=== PATIENT | female | born 1965 | race Caucasian/White ===

== ENCOUNTER 2016-09-04 14:02 | Emergency (ER) | payer MEDICAID ==
[2016-09-04 14:11] VITALS: BP 108/68
--- NOTE | 2016-09-04 14:31 | XRAY Preliminary Report ---
Exam: XR Finger(s) LT IMPRESSION: Soft tissue swelling. [facility] SITE ID: [id number]
--- NOTE | 2016-09-04 14:34 | XRAY Report ---
EXAM: LEFT THIRD DIGIT RADIOGRAPHY EXAM DATE: 09/04/2016 02:24 PM. CLINICAL HISTORY: Injury middle finger left hand. COMPARISON: None. TECHNIQUE: 3 views. FINDINGS: Bones: No definite acute fracture or other bone lesion. Joints: Tiny ossicle ulnar to the third DIP joint may represent old avulsion. Joint spaces well-prese rved. Soft Tissues: Mild soft tissue swelling. IMPRESSION: Soft tissue swelling. [facility] Referring Provider Line: [phone] SITE ID: [id number]
--- NOTE | 2016-09-04 14:58 | ED Physician Documentation ---
PD HPI UPPER EXT INJURY - Stated complaint Stated Complaint: LEFT FINGER INJ - Chief complaint Chief Complaint: Ext Problem - History obtained from History obtained from: Patient - History of Present Illness Location: Left, Finger (middle) Type of injury: Crush Where injury occurred: Other ([place]) Timing - onset: How many hours ago (2) Worsened by: Moving, Palpating Associated symptoms: Swelling. No: Weakness, Numbness Similar symptoms before: Has not had sx before - Additonal information Additional information: The patient is a 50-year-old female who [place] left [place] when the wind caught her door while she opened it. She is left-hand dominant. She denies any other injuries. Tetanus status is up-to-date. Review of Systems Respiratory: denies: Dyspnea GI: denies: Nausea, Vomiting Skin: denies: Rash, Laceration (s) Musculoskeletal: reports: Extremity pain (Left middle finger.) Neurologic: denies: Focal weakness, Numbness PD PAST MEDICAL HISTORY - Past Medical History Cardiovascular: None Respiratory: None Neuro: None Endocrine/Autoimmune: None Psych: Depression, Anxiety, ADD/ADHD - Past Surgical History Past Surgical History: Yes Ortho: Rotator cuff repair - Present Medications Home Medications: Ambulatory Orders Medication Instructions Recorded Confirmed FLUoxetine [PROzac] 20 mg ORAL DAILY 05/11/15 12/25/15 Dextroamphetamine/Amphetamine 20 mg ORAL BID 12/25/15 12/25/15 [Adderall 20 mg Tablet] Famotidine [Pepcid] 20 mg PO BID #60 tablet 12/25/15 HYDROcod/ACETAM 5/325 [Vicodin 1 - 2 ea PO Q6H PRN #20 tablet 09/04/16 5/325] - Allergies Allergies/Adverse Reactions: Allergies Allergy/AdvReac Type Severity Reaction Status Date / Time clindamycin Allergy Unknown Verified 05/11/15 14:33 - Social History Does the pt smoke?: Yes Smoking Status: Current some day smoker Does the pt drink ETOH?: Yes Does the pt have substance abuse?: No - Immunizations Immunizations are current?: Yes PD ED PE NORMAL - Vitals Vital signs reviewed: Yes (normal) - General General: Alert and oriented X 3, Well developed/nourished - HEENT HEENT: Atraumatic - Respiratory Respiratory: No respiratory distress - Derm Derm: No rash - Extremities Extremities: Other (There is slight swelling and ecchymosis of the left middle finger at the level of the middle and distal phalanges. She has diminished range of motion of the DIP joint secondary to pain. She is able to flex and extend at the PIP and MCP joints. Distal neurovascular is intact.) - Neuro Neuro: Alert and oriented X 3, No motor deficit, No sensory deficit, Normal speech Results - Vitals Vitals: Oxygen O2 Source Room air - Rads (name of study) Left middle finger Radiology: Prelim report reviewed, EMP read contemporaneously, See rad report ( Soft tissue swelling.) PD MEDICAL DECISION MAKING - ED course Complexity details: reviewed results, considered differential, d/w patient, d/w family ED course: The patient's presentation is significant for crush injury to her left middle finger. X-ray reveals soft tissue swelling, without bony abnormality detected. Treatment in the emergency department included administration of Vicodin one tablet orally. She is being discharged prescription for Vicodin, 20 tablets. She has her own finger splint which she will use for protection. 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 Departure - Departure Disposition: 01 Home, Self Care Clinical Impression: Crush injury to finger Qualifiers: Encounter type: initial encounter Qualified Code(s): S67.10XA - Crushing injury of unspecified finger(s), initial encounter Condition: Stable Instructions: ED Crush Injury Finger No Fx Follow-Up: Benedict Tse MD [Primary Care Provider] - Prescriptions: HYDROcod/ACETAM 5/325 [Vicodin 5/325] 1 - 2 ea PO Q6H PRN #20 tablet PRN Reason: Pain Comments: Keep your left hand elevated as much the time as possible. Apply icepack to the crushed finger intermittently for the next 2 days. Use Vicodin as prescribed if needed for pain. You can also use ibuprofen, up to 800 mg 3 times daily, for its anti- inflammatory effect. Follow up with your primary physician, or return to the emergency department, if you develop increasing pain despite the pain medication, any sign of infection, or otherwise worsening symptoms. Discharge Date/Time: 09/04/16 15:20
[2016-09-04] MEDS ORDERED: HYDROcod/ACETAM 5/325 MG TABLET PO STA (15:04)
[2016-09-04] MEDS ORDERED: HYDROcod/ACETAM 5/325 MG TABLET ONE (15:08)
== END 2016-09-04 15:20 | disposition home or self-care (01) ==
LOC: ED 14:02
DX: S67.193A Crushing injury of left middle finger, initial encounter (principal); V93 Other injury due to accident on board watercraft, without accident to watercraft; W23.0XXA Caught, crushed, jammed, or pinched between moving objects, initial encounter; Y93.89 Activity, other specified; Y92.814 Boat as the place of occurrence of the external cause; F17.200 Nicotine dependence, unspecified, uncomplicated
CPT/HCPCS: 73140; 99283; A9270

== ENCOUNTER 2016-12-29 12:09 | Emergency (ER) | payer MEDICAID ==
[2016-12-29 12:32] VITALS: BP 144/98
--- NOTE | 2016-12-29 13:07 | ED Physician Documentation ---
PD HPI URI - Stated complaint Stated Complaint: L RIB PX-FALL, COUGH SORE THROAT,EAR PX - Chief complaint Chief Complaint: Resp - History obtained from History obtained from: Patient - History of Present Illness Timing - onset: Other (Sick for about 4 days with right ear pain, congestion, aches and chills but no measured fevers. She was eating well for the first few days, is doing better today, but because of that she felt dizzy last night and fell without syncope hitting her left chest wall on the stairs at home. No other injuries. She is not short of breath per se but it hurts to take a deep breath.) Review of Systems Constitutional: reports: Chills, Fatigue. denies: Fever Ears: reports: Ear pain Nose: reports: Rhinorrhea / runny nose, Congestion Throat: denies: Sore throat Respiratory: reports: Cough. denies: Dyspnea PD PAST MEDICAL HISTORY - Past Medical History Cardiovascular: None Respiratory: None Neuro: None Endocrine/Autoimmune: None Psych: Depression, Anxiety, ADD/ADHD - Past Surgical History Past Surgical History: Yes Ortho: Rotator cuff repair - Present Medications Home Medications: Ambulatory Orders Medication Instructions Recorded Confirmed FLUoxetine [PROzac] 20 mg ORAL DAILY 05/11/15 12/29/16 Famotidine [Pepcid] 20 mg PO BID #60 tablet 12/25/15 12/29/16 Azithromycin [Zithromax] 250 mg PO DAILY #6 tablet 12/29/16 HYDROcod/ACETAM 5/325 [[place] 5/325] 1 - 2 ea PO Q6H PRN #15 tablet 12/29/16 - Allergies Allergies/Adverse Reactions: Allergies Allergy/AdvReac Type Severity Reaction Status Date / Time clindamycin Allergy Unknown Verified 12/29/16 12:31 - Social History Does the pt smoke?: Yes Smoking Status: Current some day smoker Does the pt drink ETOH?: Yes Does the pt have substance abuse?: No - Immunizations Immunizations are current?: Yes PD ED PE NORMAL - Vitals Vital signs reviewed: Yes - General General: Alert and oriented X 3, No acute distress - HEENT HEENT: Other (Right otitis media, left TM normal, oropharynx normal.) - Cardiac Cardiac: RRR, No murmur - Respiratory Respiratory: No respiratory distress, Clear bilaterally, Other (She points to the anterior axillary line on the left, low ribs as the site of the pain but she does not have any tenderness. No ecchymosis or visible injury, no abdominal tenderness.) - Abdomen Abdomen: Non tender - Derm Derm: Normal color, Warm and dry - Extremities Extremities: No edema, No calf tenderness / cord - Neuro Neuro: Alert and oriented X 3, Normal speech - Psych Psych: Normal mood, Normal affect Results - Vitals Vitals: Vital Signs - 24 hr 12/29/16 12:24 Temperature 36.7 C Heart Rate 81 Respiratory 14 Rate Blood Pressure 144/98 H O2 Saturation 99 Oxygen O2 Source Room air PD MEDICAL DECISION MAKING - ED course ED course: She has a viral URI with Right otitis media and a chest wall contusion, we discussed potentially an x-ray of the chest but she declined, do not think it is broken and there is no evidence of pneumothorax. Departure - Departure Disposition: 01 Home, Self Care Clinical Impression: Chest wall contusion Qualifiers: Encounter type: initial encounter Laterality: left Qualified Code(s): S20.212A - Contusion of left front wall of thorax, initial encounter ROM (right otitis media) Qualifiers: Otitis media type: suppurative Chronicity: acute Recurrence: recurrent Spontaneous tympanic membrane rupture: without spontaneous rupture Qualified Code(s): H66.004 - Acute suppurative otitis media without spontaneous rupture of ear drum, recurrent, right ear Condition: Good Record reviewed to determine appropriate education?: Yes Instructions: ED Contusion Chest Wall, ED Otitis Media Acute Adult Prescriptions: Azithromycin [Zithromax] 250 mg PO DAILY #6 tablet HYDROcod/ACETAM 5/325 [[place] 5/325] 1 - 2 ea PO Q6H PRN #15 tablet PRN Reason: Pain Comments: Call your doctor to arrange a follow-up appointment, make the next available appointment. In the interim, return anytime if worse or if new symptoms develop. Your blood pressure was elevated today on check into the emergency department. This does not mean that you have hypertension, it is a common phenomenon to come to the emergency department and have elevated blood pressure. I recommend that she see your primary care physician within the week to have it rechecked when you are feeling better. Do not drink or drive while taking narcotic pain medication. Note that many narcotic pain relievers also contain Tylenol/acetaminophen. Please ensure that your total dose of acetaminophen from all sources does not exceed 3 g (3000 mg) per day. You may get constipated while on this medication. Take a stool softener such as Colace twice a day while you are on it. Also add an [id number] laxative such as senna or MiraLAX on any day that you do not have a bowel movement. If you received a narcotic pain medication or sedative while in the emergency department, do not drive for the next 24 hours.
== END 2016-12-29 13:19 | disposition home or self-care (01) ==
LOC: ED 12:09
DX: S20.212A Contusion of left front wall of thorax, initial encounter (principal); W18.30XA Fall on same level, unspecified, initial encounter; W22.09XA Striking against other stationary object, initial encounter; Y92.009 Unspecified place in unspecified non-institutional (private) residence as the place of occurrence of the external cause; H66.004 Acute suppurative otitis media without spontaneous rupture of ear drum, recurrent, right ear; J06.9 Acute upper respiratory infection, unspecified; R03.0 Elevated blood-pressure reading, without diagnosis of hypertension; F17.200 Nicotine dependence, unspecified, uncomplicated
CPT/HCPCS: 99283; 99284

== ENCOUNTER 2017-01-20 14:53 | Emergency (ER) | payer MEDICAID ==
--- NOTE | 2017-01-20 15:00 | ED Physician Documentation ---
PD HPI LOWER EXT INJURY - Stated complaint Stated Complaint: TOE INJURY - History obtained from History obtained from: Patient - History of Present Illness PD HPI LOW EXT INJURY LOCATION: Right, Toe (little and fourth toe) Type of injury: Blunt / blow Where injury occurred: Home Timing - onset: Last night (she was upset on phonecall and kicked bed frame, with injury to 4th and 5th toes on right foot. Bruising and swelling of the bases of those toes. Pain with movement.) Timing - details: Abrupt onset, Still present Worsened by: Moving, Palpating Associated symptoms: Swelling, Discolored (bruised). No: Weakness, Numbness Similar symptoms before: Has not had sx before Recently seen: Not recently seen Review of Systems Skin: denies: Abrasion (s), Laceration (s) Musculoskeletal: reports: Extremity pain, Joint pain Neurologic: denies: Focal weakness, Numbness PD PAST MEDICAL HISTORY - Past Medical History Cardiovascular: None Respiratory: None Neuro: None Endocrine/Autoimmune: None Psych: Depression, Anxiety, ADD/ADHD - Past Surgical History Past Surgical History: Yes Ortho: Rotator cuff repair - Present Medications Home Medications: Ambulatory Orders Medication Instructions Recorded Confirmed FLUoxetine [PROzac] 60 mg ORAL DAILY 05/11/15 01/20/17 HYDROcod/ACETAM 5/325 [[place] 5/325] 1 tab PO Q6H PRN #15 tablet 01/20/17 Omeprazole [PriLOSEC] 20 mg PO DAILY 01/20/17 01/20/17 - Allergies Allergies/Adverse Reactions: Allergies Allergy/AdvReac Type Severity Reaction Status Date / Time clindamycin Allergy Unknown Verified 12/29/16 12:31 - Social History Does the pt smoke?: Yes Smoking Status: Current every day smoker Does the pt drink ETOH?: Yes Does the pt have substance abuse?: No - Immunizations Immunizations are current?: Yes PD ED PE NORMAL - Vitals Vital signs reviewed: Yes - General General: Alert and oriented X 3, Well developed/nourished - Derm Derm: Normal color, Warm and dry - Extremities Extremities: Other (right little toe and 4th toes with bruising and swelling without deformity. Little toe particularly tender to light palpation. Normal color and cap refill, with sensation at tip. She does not move it due to pain. ) - Neuro Neuro: No motor deficit, No sensory deficit Results - Vitals Vitals: Vital Signs - 24 hr 01/20/17 14:58 Temperature 36.6 C Heart Rate 100 Respiratory 18 Rate Blood Pressure 122/81 H O2 Saturation 98 Oxygen O2 Source Room air - Rads (name of study) toes right Radiology: Prelim report reviewed, EMP read contemporaneously (proximal phalanx nondisplaced shaft fracture. ) PD MEDICAL DECISION MAKING - ED course Complexity details: reviewed results, re-evaluated patient (demonstrated various taping ideas for the toe. ), considered differential, d/w patient Departure - Departure Disposition: 01 Home, Self Care Clinical Impression: Toe fracture, right Qualifiers: Encounter type: initial encounter Toe: lesser toe Fracture type: closed Phalanx : proximal Fracture alignment: nondisplaced Qualified Code(s): S92.514A - Nondisplaced fracture of proximal phalanx of right lesser toe(s), initial encounter for closed fracture Condition: Stable Record reviewed to determine appropriate education?: Yes Instructions: ED Fx Toe Closed Follow-Up: Benedict Tse MD [Primary Care Provider] - Prescriptions: HYDROcod/ACETAM 5/325 [[place] 5/325] 1 tab PO Q6H PRN #15 tablet PRN Reason: Pain Comments: Panfilo tape or anchor tape and firm soled shoe to reduce motion of the toe. Ice it frequently tonight and tomorrow. Anti-inflammatory such as ibuprofen or naproxen twice daily. Add Tylenol or hydrocodone as needed for pain. Progress activity as able with the toe and foot. It should decrease in pain after a few days with the swelling going down and then at about a week and a half when the early callus formation occurs. It will take about 4-5 weeks to fully heal up. Discharge Date/Time: 01/20/17 16:34
[2017-01-20 15:03] VITALS: BP 122/81
[2017-01-20] MEDS ORDERED: ACETAMINOPHEN 325 MG TABLET PO STA (15:15)
[2017-01-20] MEDS ORDERED: IBUPROFEN 400 MG TABLET PO STA (15:15)
--- NOTE | 2017-01-20 16:16 | XRAY Preliminary Report ---
Exam: XR TOE(S) RT IMPRESSION: There is obliquely oriented fracture through the fifth proximal phalanx. No evidence of d islocation. [facility] SITE ID: [id number]
--- NOTE | 2017-01-20 16:19 | XRAY Report ---
EXAM: RIGHT TOE RADIOGRAPHY EXAM DATE: 01/20/2017 04:08 PM. CLINICAL HISTORY: Little toe injury last night, struck object. COMPARISON: None. TECHNIQUE: 3 views. FINDINGS: Bones: There is obliquely oriented fracture through the fifth proximal phalanx. Joints: No evidence of dislocation. Soft Tissues: Mild lateral foot soft tissue swelling. IMPRESSION: There is obliquely oriented fracture through the fifth proximal phalanx. No evidence of d islocation. [facility] Referring Provider Line: [phone] SITE ID: [id number]
== END 2017-01-20 16:34 | disposition home or self-care (01) ==
LOC: ED 14:53
DX: S92.514A Nondisplaced fracture of proximal phalanx of right lesser toe(s), initial encounter for closed fracture (principal); W22.8XXA Striking against or struck by other objects, initial encounter; Y93.89 Activity, other specified; Y92.009 Unspecified place in unspecified non-institutional (private) residence as the place of occurrence of the external cause
CPT/HCPCS: 73660; 99283

== ENCOUNTER 2017-10-02 14:49 | Emergency (ER) | payer MEDICAID ==
[2017-10-02 15:06] VITALS: BP 141/91
== END 2017-10-02 16:01 | disposition left against medical advice (07) ==
LOC: ED 14:49
DX: Z53.21 Procedure and treatment not carried out due to patient leaving prior to being seen by health care provider (principal)

== ENCOUNTER 2018-06-21 13:01 | Emergency (ER) | payer MEDICAID ==
[2018-06-21 13:16] VITALS: BP 128/93
--- NOTE | 2018-06-21 13:29 | ED Physician Documentation ---
History of Present Illness - Stated complaint Stated Complaint: SHOULDER PX - Chief complaint Chief Complaint: Ext Problem - History obtained from History obtained from: Patient - Additonal information Additional information: Patient is a previously healthy, left-handed 52-year-old female presenting with request for MRI of left shoulder. Patient does report history of left shoulder issues that have required surgical correction, although no hardware in place. Approximately 2 months ago, patient was walking through the [employer] [employer] airport and pulling her luggage through the snow with her left arm and tweaked her shoulder. Patient reports that she has had continuing discomfort in the shoulder that radiates towards the top of her arm, as well as limited range of motion and lifting her arm above her head. Patient denies any particular sensation or other strength changes to the left upper extremity. Patient also denies any known swelling, bruising, erythema. Patient has seen her primary care physician several times and has tried [id number]-[id number] medications such as ibuprofen/Tylenol. Patient is currently scheduled for outpatient MRI, but there is some difficulties with her insurance. No other improving or worsening factors noted to her symptoms. Review of Systems Musculoskeletal: reports: Extremity pain Neurologic: denies: Focal weakness, Numbness PD PAST MEDICAL HISTORY - Past Medical History Past Medical History: Yes Cardiovascular: None Respiratory: None Endocrine/Autoimmune: None Psych: Depression, Anxiety, ADD/ADHD - Past Surgical History Past Surgical History: Yes Ortho: Rotator cuff repair, Arthroscopic surgery - Present Medications Home Medications: Ambulatory Orders Medication Instructions Recorded Confirmed FLUoxetine [PROzac] 60 mg ORAL DAILY 05/11/15 01/20/17 HYDROcod/ACETAM 5/325 [[place] 5/325] 1 tab PO Q6H PRN #15 tablet 01/20/17 Omeprazole [PriLOSEC] 20 mg PO DAILY 01/20/17 01/20/17 - Allergies Allergies/Adverse Reactions: Allergies Allergy/AdvReac Type Severity Reaction Status Date / Time clindamycin Allergy Unknown Verified 06/21/18 13:09 - Social History Does the pt smoke?: Yes Smoking Status: Current every day smoker Does the pt drink ETOH?: Yes Does the pt have substance abuse?: No - Immunizations Immunizations are current?: Yes - POLST Patient has POLST: No PD ED PE NORMAL - General General: Alert and oriented X 3, No acute distress, Well developed/nourished - HEENT HEENT: Atraumatic - Cardiac Cardiac: Strong equal pulses (Cap refill brisk) - Respiratory Respiratory: No respiratory distress - Derm Derm: Normal color, Warm and dry, No rash - Extremities Extremities: No deformity, No tenderness to palpate, Normal ROM s pain (Limited range of motion and full extension of above shoulder on left side) - Neuro Neuro: Alert and oriented X 3, No motor deficit, No sensory deficit - Psych Psych: Normal mood, Normal affect Results - Vitals Vitals: Vital Signs - 24 hr 06/21/18 13:09 Temperature 36.6 C Heart Rate 70 Respiratory 14 Rate Blood Pressure 128/93 H O2 Saturation 100 Oxygen O2 Source Room air PD MEDICAL DECISION MAKING - ED course Complexity details: reviewed old records, considered differential, d/w patient, d/w family ED course: Patient presenting with request for left shoulder MRI as she is currently awaiting MRI as an outpatient, but having difficulties with her primary care physician and insurance. Patient reports that she has had previous issues with this shoulder, but does not have shoulder replacement or other hardware in place. Patient reports that about 2 months ago she experienced a slight injury to the shoulder and per her symptoms, I feel most likely she is expressing a rotator cuff injury. Do not have high suspicion today for new fracture, dislocation, joint infection or other complication. Do not find evidence of neurological issues such as nerve entrapment. Offered Toradol in ED, but unable to provide emergent MRI or other interventions at this time. Feel that she needs to continue her outpatient plan and can continue to ask her PCP for additional assistance with other alternatives such as massage, physical therapy, acupuncture. Patient voiced understanding and is comfortable with discharge plan. Departure - Departure Disposition: 01 Home, Self Care Clinical Impression: Pain of upper extremity Qualifiers: Laterality: left Qualified Code(s): M79.602 - Pain in left arm Condition: Good Instructions: ED Torn Rotator Cuff Follow-Up: Viral Curtis MD [Provider Admit Priv/Credential] - Within 3 Days Comments: Recommend continued follow-up with your primary care physician for orthopedic surgery referral, as well as referral for possible physical therapy, massage, acupuncture. You can also call orthopedic surgery as listed on today's forms in the next 2-3 days for follow-up.Recommend continued supportive care such as a protein/Tylenol, stretching, and massage. Return to ED sooner if experience new injury or worsening symptoms.
[2018-06-21] MEDS ORDERED: KETOROLAC 60 MG/2 ML VIAL IM STA (13:44)
== END 2018-06-21 14:25 | disposition home or self-care (01) ==
LOC: ED 13:01
DX: M79.602 Pain in left arm (principal); F17.200 Nicotine dependence, unspecified, uncomplicated
CPT/HCPCS: 96372; 99282; 99283

== ENCOUNTER 2019-03-07 13:46 | Outpatient (CLI) | payer MEDICAID ==
[2019-03-07 19:17] LABS: RHEUMATOID FACTOR NEGATIVE (Negative)
[2019-03-09 14:42] LABS: ANA SCREEN NEGATIVE (NEGATIVE)
== END 2019-03-07 13:47 | disposition home or self-care (01) ==
LOC: LAB.S 13:46
PROVIDERS: ATTEND Physician Assistant Medical
DX: M25.442 Effusion, left hand (principal); M25.441 Effusion, right hand; Z82.61 Family history of arthritis
CPT/HCPCS: 36415; 86038; 86430

== ENCOUNTER 2019-08-31 13:56 | Emergency (ER) | payer MEDICAID ==
[2019-08-31 14:17] LABS: BILIRUBIN,URINE NEGATIVE (NEGATIVE); GLUCOSE, URINE (UA) NEGATIVE (NEGATIVE); KETONES,URINE (UA) NEGATIVE (NEGATIVE); LEUKOCYTE ESTERASE, URINE NEGATIVE (NEGATIVE); NITRITE,URINE NEGATIVE (NEGATIVE); OCCULT BLOOD,URINE NEGATIVE (NEGATIVE); PROTEIN,URINE NEGATIVE (NEGATIVE); UROBILINOGEN,URINE 0.2 (NORMAL) E.U./dL (NORMAL)
[2019-08-31 14:18] LABS: CLARITY,URINE CLEAR (CLEAR)
--- NOTE | 2019-08-31 14:19 | ED Physician Documentation ---
History of Present Illness - Stated complaint Stated Complaint: RT FLANK PX - Chief complaint Chief Complaint: UTI - History obtained from History obtained from: Patient - History of Present Illness Timing: Prior to arrival, How many days ago (3) Pain level max: 8 Pain level now: 4 Radiates to: back - Additonal information Additional information: 53-year-old female presents to the emergency department with chief complaint of right flankm, RLQ and back pain with associated increased urinary urgency and frequency. In point she denies dysuria or hematuria. She reports that she was on a prolonged car trip and sitting for 6 to 8 hours. She is unsure if she was able to void adequately during the length of the car trip. Patient is sexually active with her long-term boyfriend. Reports monogamy. Denies vaginal vaginal discharge, denies dyspareunia.. No history of recurrent urinary tract infection. Patient reports that she had not had a menstrual cycle for nearly a year until a month ago when she began having episodic vaginal spotting. Past medical history most significant for depression anxiety and trigger finger Meds: fluoxetine, gabapentin Review of Systems Constitutional: denies: Fever, Chills Throat: denies: Dental pain / toothache Cardiac: denies: Chest pain / pressure, Palpitations Respiratory: denies: Dyspnea, Cough GI: reports: Abdominal Pain, Nausea. denies: Vomiting, Constipation, Diarrhea : reports: Frequency. denies: Dysuria, Hematuria Skin: denies: Rash, Lesions Musculoskeletal: reports: Back pain Neurologic: denies: Generalized weakness, Syncope, Seizure Psychiatric: reports: Depressed Endocrine: reports: Polyuria. denies: Polydypsia, Weight loss, Weight gain PD PAST MEDICAL HISTORY - Past Medical History Past Medical History: Yes Cardiovascular: None Respiratory: None Endocrine/Autoimmune: None Psych: Depression, Anxiety, ADD/ADHD - Past Surgical History Past Surgical History: Yes Ortho: Rotator cuff repair, Arthroscopic surgery - Present Medications Home Medications: Ambulatory Orders Medication Instructions Recorded Confirmed FLUoxetine [PROzac] 60 mg ORAL DAILY 05/11/15 01/20/17 HYDROcod/ACETAM 5/325 [[place] 5/325] 1 tab PO Q6H PRN #15 tablet 01/20/17 Omeprazole [PriLOSEC] 20 mg PO DAILY 01/20/17 01/20/17 Cephalexin [Keflex] 500 mg PO Q8H #21 capsule 08/31/19 - Allergies Allergies/Adverse Reactions: Allergies Allergy/AdvReac Type Severity Reaction Status Date / Time clindamycin Allergy Unknown Verified 08/31/19 14:08 - Social History Does the pt smoke?: Yes Smoking Status: Current every day smoker Does the pt drink ETOH?: Yes Does the pt have substance abuse?: No - Immunizations Immunizations are current?: Yes - POLST Patient has POLST: No PD ED PE EXPANDED - General General: Alert, No acute distress, Well developed/nourished - Neck Neck: Supple w/out meningeal sx, No tenderness - Cardiac Cardiac: Regular Rate, Radial strong equal - Respiratory Respiratory: Clear to ausultation marium - Abdomen Abdomen: Normal Bowel sounds, RLQ, Other (Right flank and RLQ tenderness with rebound tenderness. NO CVA tenderness) - Back Back: Normal exam, Normal ROM. No: CVA TTP right, CVA TTP left - Derm Derm: Normal color, Warm and dry. No: Rash - Neuro Neuro: Alert and Oriented X 3 Results - Vitals Vitals: Vital Signs - 24 hr 08/31/19 14:02 Temperature 36.7 C Heart Rate 80 Respiratory 16 Rate Blood Pressure 119/76 O2 Saturation 100 Oxygen O2 Source Room air - Labs Labs: Laboratory Tests 08/31/19 08/31/19 08/31/19 14:12 14:35 14:35 WBC 5.0 RBC 4.33 Hgb 12.9 Hct 39.1 MCV 90.3 MCH 29.8 MCHC 33.0 RDW 12.9 Plt Count 255 MPV 9.9 Neut # (Auto) 2.8 Lymph # (Auto) 1.4 L [place] # (Auto) 0.5 Eos # (Auto) 0.3 Baso # (Auto) 0.1 Absolute Nucleated RBC 0.00 Nucleated RBC % 0.0 Sodium 138 Potassium 3.9 Chloride 102 Carbon Dioxide 27 Anion Gap 9.0 BUN 13 Creatinine 0.7 Estimated GFR (MDRD) 88 L Glucose 87 Calcium 9.0 Total Bilirubin 0.3 AST 15 ALT 13 Alkaline Phosphatase 78 Total Protein 6.7 Albumin 4.4 Globulin 2.3 Albumin/Globulin Ratio 1.9 Lipase 45 Urine Color LIGHT YELLOW Urine Clarity CLEAR Urine pH 6.0 Ur Specific [place] <=1.005 Urine Protein NEGATIVE Urine Glucose (UA) NEGATIVE Urine Ketones NEGATIVE Urine Occult Blood NEGATIVE Urine Nitrite NEGATIVE Urine Bilirubin NEGATIVE Urine Urobilinogen 0.2 (NORMAL) Ur Leukocyte Esterase NEGATIVE Ur Microscopic Review NOT INDICATED Urine Culture Comments NOT INDICATED Urine HCG, Qual NEGATIVE - Rads (name of study) CT abd/pelvis w Radiology: Final report received (No evidence of acute appendicitis no right adnexal pathology identified. 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 No evidence of acute abdominal process. The intrahepatic portion of the inferior vena cava is noted to narrow considerably this is likely an incidental finding. There are no additional findings which suggest Budd-Chiari physiology.) PD MEDICAL DECISION MAKING - ED course Complexity details: reviewed results, re-evaluated patient, considered differential, d/w patient ED course: 53-year-old female presents to the emergency department with chief complaint of 3 days of urinary urgency and frequency.She also had associated right flank and right lower quadrant abdominal pain. No fevers. -ddx includes but not limited to acute appy, uti, plyelo, adnexal pathology, sti - Labs reviewed in full. Her urine is unremarkable for markers of infection. CT scan was completed and did not reveal any obvious ovarian or acute pathology within the appendix.Her pain had improved moderately with Toradol in the emergency department. - doubt pyelonephritis. she has no CVA tenderness, leukocytosis or fever. In discussion with the patient though her urine appears clean and the CT scan does not show an obvious pathology her symptoms of increased urinary frequency and urgency are more consistent with acute cystitis. We will plan to treat the patient with 7-day course of Keflex for possible cystitis. Discussed with patient that if her symptoms did not improve she developed fevers or worsening symptoms to return to the emergency department for reevaluation. Departure - Departure Disposition: 01 Home, Self Care Clinical Impression: Urinary urgency, Right flank pain Condition: Stable Record reviewed to determine appropriate education?: Yes Instructions: ED Abdominal Pain Unkn Cause Follow-Up: Pepper Woodard MD [Primary Care Provider] - Prescriptions: Cephalexin [Keflex] 500 mg PO Q8H #21 capsule Comments: Suzy I hope you feel better soon. Your urine labs and CT scan did not show any worrisome findings. However your symptoms are more consistent with having an infection in the urine. But start you on a 7-day course of an antibiotic called Keflex. If you find that your symptoms are not improving you have fevers worsening pain then please return to the emergency department for reevaluation
[2019-08-31 14:20] LABS: HCG UR QUAL NEGATIVE
[2019-08-31] MEDS ORDERED: KETOROLAC 60 MG/2 ML VIAL IM STA (14:20)
[2019-08-31 14:40] LABS: BASOPHILS # (AUTO) 0.1 10^3/uL (0.0-0.1); EOSINOPHILS # (AUTO) 0.3 10^3/uL (0.0-0.7); EOSINOPHILS % (AUTO) 5.4 %; HGB - HEMOGLOBIN 12.9 g/dL (12.0-16.0); LYMPHOCYTES # (AUTO) 1.4 10^3/uL (1.5-3.5); LYMPHOCYTES % (AUTO) 28.2 %; MEAN CORPUSCULAR HEMOGLOBIN 29.8 pg (27.0-31.0); MEAN CORPUSCULAR VOLUME 90.3 fL (81.0-99.0); MEAN PLATELET VOLUME 9.9 fL (7.9-10.8); MONOCYTES # (AUTO) 0.5 10^3/uL (0.0-1.0); MONOCYTES % (AUTO) 10.3 %; NEUTROPHILS # (AUTO) 2.8 10^3/uL (1.5-6.6); NEUTROPHILS % (AUTO) 54.9 %; PLT - PLATELET COUNT 255 10^3/uL (130-450); RED BLOOD COUNT 4.33 10^6/uL (4.20-5.40); RED CELL DISTRIBUTION WIDTH 12.9 % (12.0-15.0)
[2019-08-31] MEDS ORDERED: IOVERSOL 320 100 ML VIAL IVP ONE ×2 (14:46→17:13)
[2019-08-31 14:53] LABS: ALBUMIN 4.4 g/dL (3.2-5.5); ALBUMIN/GLOBULIN RATIO 1.9 (1.0-2.2); BILIRUBIN,TOTAL 0.3 mg/dL (0.2-1.0); CREATININE 0.7 mg/dL (0.4-1.0); TOTAL PROTEIN 6.7 g/dL (6.7-8.2)
--- NOTE | 2019-08-31 15:44 | CT Report ---
PROCEDURE: Abdomen/Pelvis W INDICATIONS: RLQ pain; eval appy vs ovary CONTRAST: IV CONTRAST: Optiray 320 ml: 100 PO CONTRAST: *NO PO CONTRAST TECHNIQUE: After the administration of oral and intravenous contrast, 5 mm thick sections acquired from the diap hragms to the symphysis. 5 mm thick coronal and sagittal reformats were acquired. For radiation dos e reduction, the following was used: automated exposure control, adjustment of mA and/or kV accordin g to patient size. COMPARISON: None. FINDINGS: Image quality: Excellent. ABDOMEN: Lung bases: Lung bases are clear. Heart size is normal. Solid organs: Liver and spleen are normal in size and enhancement. Gallbladder is unremarkable Robb iary system is non dilated. Pancreas enhances normally. No adrenal nodules. Kidneys demonstrate no rmal size and enhancement, without hydronephrosis. Peritoneum and bowel: Bowel loops demonstrate normal wall thickness and caliber. No free fluid or a ir. There is a paucity of intra-abdominal fat. A probable normal gas containing appendix is identifi ed. There are no secondary signs of acute appendicitis. No abscess cavities. 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 Incidental note is made of the presence of significant narrowing of the intrahepatic portion of the inferior ve na cava. Nodes and vessels: No retroperitoneal or mesenteric adenopathy by size criteria. Aorta and inferior vena cava are normal in size. Miscellaneous: No ventral hernias. PELVIS: Genitourinary: Bladder wall thickness is normal. Miscellaneous: No inguinal hernias or adenopathy. Bones: No suspicious bony lesions. No vertebral body compression fractures. IMPRESSION: 1. No evidence of acute appendicitis. No right adnexal pathology identified. 2. 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 In a subse t of patients, findings may correlate with pelvic venous congestion syndrome. 3. No evidence of acute abdominal process. 4. The intrahepatic portion the inferior vena cava is noted to narrow considerably. This is likely an incidental finding. There are no additional findings which suggest Budd-Chiari physiology. Reviewed by: Juventino Edwards MD on 08/31/2019 3:43 PM PDT Approved by: Juventino Edwards MD on 08/31/2019 3:43 PM PDT Station ID: [id number]
[2019-08-31 16:19] VITALS: BP 112/73
== END 2019-08-31 16:30 | disposition home or self-care (01) ==
LOC: ED 13:56
DX: R39.15 Urgency of urination (principal); R35.0 Frequency of micturition; R10.31 Right lower quadrant pain; R11.0 Nausea; I86.2 Pelvic varices; F17.200 Nicotine dependence, unspecified, uncomplicated
CPT/HCPCS: 36415; 74177; 80053; 81003; 81025; 83690; 85025; 96372; 99284; Q9967; 81001; 87086

== ENCOUNTER 2020-01-13 18:26 | Emergency (ER) | payer MEDICAID ==
[2020-01-13] MEDS ORDERED: cephALEXin 250 MG CAPSULE PO STA (19:22)
[2020-01-13] MEDS ORDERED: SULFAMETH/TRIMETH DS 800/160 MG TABLET PO STA (19:22)
--- NOTE | 2020-01-13 20:40 | ED Physician Documentation ---
History of Present Illness - Stated complaint Stated Complaint: POST OP HAND OOZE - Chief complaint Chief Complaint: Ext Problem - History obtained from History obtained from: Patient - History of Present Illness Timing: How many days ago (3) Pain level max: 2 Pain level now: 1 - Additonal information Additional information: 54-year-old female presents to the emergency department complaining of left hand pain. She is complaining at the site of a trigger finger surgery, from 3 months ago. She states she has had problems with recurrent infection at this site. Does not recall any new injury. She states there was a white drainage earlier today. No fevers. Worse with movement, better with rest Review of Systems Constitutional: denies: Fever, Chills GI: denies: Vomiting Neurologic: denies: Focal weakness, Numbness PD PAST MEDICAL HISTORY - Past Medical History Cardiovascular: None Respiratory: None Endocrine/Autoimmune: None Psych: Depression, Anxiety, ADD/ADHD - Past Surgical History Past Surgical History: Yes Ortho: Rotator cuff repair, Arthroscopic surgery, Carpal Tunnel surgery - Present Medications Home Medications: Ambulatory Orders Medication Instructions Recorded Confirmed FLUoxetine [PROzac] 60 mg ORAL DAILY 05/11/15 01/20/17 HYDROcod/ACETAM 5/325 [[place] 5/325] 1 tab PO Q6H PRN #15 tablet 01/20/17 Omeprazole [PriLOSEC] 20 mg PO DAILY 01/20/17 01/20/17 Cephalexin [Keflex] 500 mg PO Q8H #21 capsule 08/31/19 Cephalexin [Keflex] 500 mg PO Q8HR #21 capsule 10/30/19 Hydrocodone/Acetaminophen 1 each PO Q6HR PRN #14 tablet 10/30/19 [Hydrocodone-Acetamin 5-325 mg] Cephalexin [Keflex] 500 mg PO Q6H #40 capsule 01/13/20 Sulfamethox/Trimeth 800/160 1 each PO BID #20 tablet 01/13/20 [Bactrim Ds 800/160] - Allergies Allergies/Adverse Reactions: Allergies Allergy/AdvReac Type Severity Reaction Status Date / Time clindamycin Allergy Unknown Verified 01/13/20 18:40 - Social History Does the pt smoke?: Yes Smoking Status: Current every day smoker Does the pt drink ETOH?: No Does the pt have substance abuse?: No - Immunizations Immunizations are current?: Yes - POLST Patient has POLST: No PD ED PE NORMAL - Vitals Vital signs reviewed: Yes - General General: Alert and oriented X 3, No acute distress - HEENT HEENT: Moist mucous membranes - Neck Neck: Supple, no meningeal sign - Derm Derm: Warm and dry - Neuro Neuro: Alert and oriented X 3 PD ED PE EXPANDED - Extremities NU UE/Hands Visual: 1 - swelling (Mild erythema. No drainage. NVI), tenderness Results - Vitals Vitals: Vital Signs - 24 hr 01/13/20 01/13/20 18:36 20:40 Temperature 36.9 C 36.6 C Heart Rate 67 70 Respiratory 16 18 Rate Blood Pressure 119/75 121/81 H O2 Saturation 99 98 Oxygen O2 Source Room air - Rads (name of study) L hand xray Radiology: Prelim report reviewed, EMP read contemporaneously, See rad report (normal) PD MEDICAL DECISION MAKING - ED course Complexity details: considered differential, d/w patient ED course: 54 year old female with cellulitis, possible small abscess. Will place on abx. No evidence of osteomyelitis. Patient is well-appearing, nontoxic. No evidence of lymphangitis. No evidence of compartment syndrome. No evidence of sepsis. Patient counseled regarding signs and symptoms for which I believe and urgent re-evaluation would be necessary. Patient with good understanding of and agreement to plan and is comfortable going home at this time This document was made in part using voice recognition software. While efforts are made to proofread this document, sound alike and grammatical errors may occu r. Departure - Departure Disposition: 01 Home, Self Care Clinical Impression: Cellulitis Qualifiers: Site of cellulitis: extremity Site of cellulitis of extremity: finger Laterality: left Qualified Code(s): L03.012 - Cellulitis of left finger Condition: Good Instructions: ED Infec Skin Cellulitis Follow-Up: Pepper Woodard MD [Primary Care Provider] - Within 1 week Prescriptions: Sulfamethox/Trimeth 800/160 [Bactrim Ds 800/160] 1 each PO BID #20 tablet Cephalexin [Keflex] 500 mg PO Q6H #40 capsule Comments: Take all antibiotics until gone. Follow-up with your doctor this week for a wound check. I do agree that you need to revisit this wound with a hand surgeon. Return here if you worsen Discharge Date/Time: 01/13/20 20:42
[2020-01-13 20:41] VITALS: BP 121/81
--- NOTE | 2020-01-13 20:54 | XRAY Report ---
PROCEDURE: Hand 3 View LT INDICATIONS: post operative pain, swelling x 3 months TECHNIQUE: 3 views of the hand(s) acquired. COMPARISON: Left fingers 09/04/2016. FINDINGS: Bones: No fractures or dislocations. No periosteal reaction. No osseous erosion. No suspicious bony lesions. Soft tissues: No suspicious soft tissue calcifications. No radiopaque foreign body. IMPRESSION: No acute osseous abnormality. No radiopaque foreign body. Reviewed by: Diogenes Bernard MD on 01/13/2020 8:53 PM PDT Approved by: Diogenes Bernard MD on 01/13/2020 8:53 PM PDT Station ID: [id number]
== END 2020-01-13 20:42 | disposition home or self-care (01) ==
LOC: ED 18:26
DX: L03.012 Cellulitis of left finger (principal); F17.200 Nicotine dependence, unspecified, uncomplicated
CPT/HCPCS: 73130; 99283; 99284; A9270

== ENCOUNTER 2020-09-21 10:20 | Emergency (ER) | payer MEDICAID ==
[2020-09-21 10:26] VITALS: BP 125/77
[2020-09-21 10:46] LABS: BILIRUBIN,URINE NEGATIVE (NEGATIVE); GLUCOSE, URINE (UA) NEGATIVE (NEGATIVE); KETONES,URINE (UA) NEGATIVE (NEGATIVE); LEUKOCYTE ESTERASE, URINE SMALL (NEGATIVE); NITRITE,URINE NEGATIVE (NEGATIVE); OCCULT BLOOD,URINE NEGATIVE (NEGATIVE); PH,URINE 6.5 PH (5.0-7.5); PROTEIN,URINE NEGATIVE (NEGATIVE); UROBILINOGEN,URINE 0.2 (NORMAL) E.U./dL (NORMAL)
[2020-09-21 11:02] LABS: CLARITY,URINE CLEAR (CLEAR); HCG UR QUAL NEGATIVE
[2020-09-21 11:10] LABS: RBC,URINE 0-5 /HPF (0-5); SQUAMOUS EPITHELIAL CELL,UR RARE Squamous (<= Few); WBC CLUMPS,URINE PRESENT
--- NOTE | 2020-09-21 11:27 | ED Physician Documentation ---
PD HPI FEMALE - Stated complaint Stated Complaint: FEMALE - Chief complaint Chief Complaint: UTI - History obtained from History obtained from: Patient - History of Present Illness Timing - onset: How many days ago (10) Timing - duration: Days (10) Timing - details: Gradual onset, Still present, Waxing and waning Associated symptoms: Dysuria, Urinary frequency. No: Back pain Contributing factors: No: Similar symptoms before: Diagnosis (UTI) Recently seen: Not recently seen - Additional information Additional information: 54-year-old female with a prior history of urinary tract infection has developed some signs symptoms of urinary tract infection with urinary urgency frequency and dysuria she has not had nausea vomiting fever or back pain. She has had waxing and waning symptoms over the past 10 days she took some Azo which initially cleared up her symptoms she continues to have symptoms and was asked by her doctor to come into the emergency department to get some antibiotics. Review of Systems Constitutional: denies: Fever Eyes: denies: Decreased vision Ears: denies: Ear pain Nose: denies: Congestion Respiratory: denies: Cough GI: denies: Abdominal Pain, Nausea, Vomiting, Constipation, Diarrhea : reports: Dysuria, Frequency Skin: denies: Rash Musculoskeletal: denies: Neck pain, Back pain, Extremity pain Neurologic: denies: Generalized weakness, Focal weakness, Numbness PD PAST MEDICAL HISTORY - Past Medical History Past Medical History: No Cardiovascular: None Respiratory: None Endocrine/Autoimmune: None Psych: Depression, Anxiety, ADD/ADHD - Past Surgical History Past Surgical History: Yes Ortho: Rotator cuff repair, Arthroscopic surgery, Carpal Tunnel surgery - Present Medications Home Medications: Ambulatory Orders Medication Instructions Recorded Confirmed FLUoxetine [PROzac] 60 mg ORAL DAILY 05/11/15 09/21/20 Sulfamethox/Trimeth 800/160 1 each PO BID #14 tablet 09/21/20 [Bactrim Ds] - Allergies Allergies/Adverse Reactions: Allergies Allergy/AdvReac Type Severity Reaction Status Date / Time clindamycin Allergy Unknown Verified 09/21/20 10:26 - Social History Does the pt smoke?: Yes Smoking Status: Current every day smoker Does the pt drink ETOH?: No Does the pt have substance abuse?: No - Immunizations Immunizations are current?: Yes - POLST Patient has POLST: No PD ED PE NORMAL - Vitals Vital signs reviewed: Yes (Normal) - General General: Alert and oriented X 3, No acute distress, Well developed/nourished - HEENT HEENT: Atraumatic, PERRL, EOMI - Respiratory Respiratory: No respiratory distress - Back Back: No CVA TTP, No spinal TTP - Derm Derm: Normal color, Warm and dry, No rash - Extremities Extremities: No deformity, No edema - Neuro Neuro: Alert and oriented X 3, warp scouring vat tender 2-12 intact, No motor deficit, No sensory deficit, Normal speech Eye Opening: Spontaneous Motor: Obeys Commands Verbal: Oriented GCS Score: 15 - Psych Psych: Normal mood, Normal affect Results - Vitals Vitals: Vital Signs - 24 hr 09/21/20 10:23 Temperature 36.3 C L Heart Rate 69 Respiratory 16 Rate Blood Pressure 125/77 O2 Saturation 99 Oxygen O2 Source Room air - Labs Labs: Laboratory Tests 09/21/20 10:30 Urine Color YELLOW Urine Clarity CLEAR Urine pH 6.5 Ur Specific [place] 1.010 Urine Protein NEGATIVE Urine Glucose (UA) NEGATIVE Urine Ketones NEGATIVE Urine Occult Blood NEGATIVE Urine Nitrite NEGATIVE Urine Bilirubin NEGATIVE Urine Urobilinogen 0.2 (NORMAL) Ur Leukocyte Esterase SMALL H Urine RBC 0-5 Urine WBC 11-25 H Urine WBC Clumps PRESENT Ur Squamous Epith Cells RARE Squamous Ur Microscopic Review INDICATED Urine Culture Comments Not Reportable Urine HCG, Qual NEGATIVE PD MEDICAL DECISION MAKING - ED course Complexity details: considered differential, d/w patient, d/w family ED course: 54-year-old female with acute urinary tract infection without complication. Departure - Departure Disposition: 01 Home, Self Care Clinical Impression: Urinary tract infection Qualifiers: Urinary tract infection type: acute cystitis Hematuria presence: without hematuria Qualified Code(s): N30.00 - Acute cystitis without hematuria Condition: Stable Instructions: ED UTI Cystitis Female Follow-Up: Pepper Woodard MD [Primary Care Provider] - Prescriptions: Sulfamethox/Trimeth 800/160 [Bactrim Ds] 1 each PO BID #14 tablet
[2020-09-21 12:14] LABS: BACTERIA,URINE Rare /HPF (None Seen)
== END 2020-09-21 11:34 | disposition home or self-care (01) ==
LOC: ED 10:20
DX: N30.00 Acute cystitis without hematuria (principal); F17.200 Nicotine dependence, unspecified, uncomplicated
CPT/HCPCS: 81001; 81003; 81025; 87077; 87086; 99283

== ENCOUNTER 2022-11-18 13:50 | Emergency (ER) | payer MEDICAID ==
--- NOTE | 2022-11-18 14:25 | XRAY Report ---
PROCEDURE: Ribs w/PA Chest RT INDICATIONS: fall TECHNIQUE: 2 views of the right ribs were acquired, along with a single view chest. COMPARISON: None. FINDINGS: Surgical changes and devices: None. Bones and chest wall: No fractures or dislocations. No suspicious bony lesions. Overlying soft tis sues appear unremarkable. Lungs and pleura: No pleural effusions or pneumothorax. Lungs appear clear. Mediastinum: Mediastinal contours appear normal. Heart size is normal. IMPRESSION: No displaced rib fracture or pneumothorax. Reviewed by: Juventino Edwards MD on 11/18/2022 2:23 PM PDT Approved by: Juventino Edwards MD on 11/18/2022 2:23 PM PDT Station ID: [id number]
--- NOTE | 2022-11-18 16:16 | ED Physician Documentation ---
History of Present Illness - Stated complaint Stated Complaint: SORAYA WRIGHT - Chief complaint Chief Complaint: Trauma Ch/Bk - History obtained from History obtained from: Patient - Additonal information Additional information: The patient comes to the emergency department for chief complaint of right chest wall pain after taking a fall in the shower 2 days ago and hitting her ribs underneath her right breast on the edge of the bathtub. The patient states she initially mainly had pain under the right breast, though she has noticed some pain tracking down from the area since. She also has some soreness in her right flank, though she did not directly hit this area or the back. No hematuria. No lightheadedness. No nausea or vomiting. She states it hurts to take a deep breath but denies cough or fever. No other complaints at this time. She is not on any blood thinners. PD PAST MEDICAL HISTORY - Past Medical History Cardiovascular: None Respiratory: None Endocrine/Autoimmune: None Psych: Depression, Anxiety, ADD/ADHD - Past Surgical History Past Surgical History: Yes Ortho: Rotator cuff repair, Arthroscopic surgery, Carpal Tunnel surgery - Present Medications Home Medications: Ambulatory Orders Medication Instructions Recorded Confirmed FLUoxetine [PROzac] 60 mg ORAL DAILY 05/11/15 09/21/20 HYDROcod/ACETAM 5/325 [Gorin 5/325] 1 - 2 tablet PO Q6H PRN #20 tablet 11/18/22 oxyCODONE [Roxicodone] 5 mg PO ONCE PRN 11/18/22 11/18/22 - Allergies Allergies/Adverse Reactions: Allergies Allergy/AdvReac Type Severity Reaction Status Date / Time clindamycin Allergy Unknown Verified 11/18/22 14:00 - Social History Does the pt smoke?: Yes Smoking Status: Current every day smoker Does the pt drink ETOH?: No Does the pt have substance abuse?: No - Immunizations Immunizations are current?: Yes - POLST Patient has POLST: No PD ED PE NORMAL - Vitals Vital signs reviewed: Yes - General General: Alert and oriented X 3, No acute distress, Well developed/nourished - HEENT HEENT: Atraumatic, PERRL, EOMI, Moist mucous membranes - Neck Neck: Supple, no meningeal sign - Cardiac Cardiac: RRR, No murmur - Respiratory Respiratory: No respiratory distress, Clear bilaterally - Abdomen Abdomen: Soft, Non distended, Other (Point tenderness to palpation just to the right of midline and again in the right flank. The areas are small and focused and do not extend to adjacent regions.) - Derm Derm: Normal color, Warm and dry, No rash - Extremities Extremities: No deformity, No edema - Neuro Neuro: Alert and oriented X 3 - Psych Psych: Normal mood, Normal affect - Free text exam Free text exam: Marked tenderness palpation over right anterior ribs numbers 6 and 7. No crepitus. No step-off. No edema. Results - Vitals Vitals: Vital Signs - 24 hr 11/18/22 14:00 Temperature 36.5 C Heart Rate 65 Respiratory 18 Rate Blood Pressure 127/80 O2 Saturation 99 Oxygen O2 Source Room air - Rads (name of study) Right rib x-ray series with chest Relevant Findings:: Final report received, See rad report (Negative) PD Medical Decision Making - ED course Complexity details: reviewed results, re-evaluated patient, considered differential, d/w patient ED course: The patient was sent for x-rays of her right ribs and chest which were found to be unremarkable. I discussed with the patient that there are no visualized fractures and the either way, the injury will have to resolve on its own. The patient has some focused spots of tenderness in her right abdomen and flank, though these are very focused and do not seem to involve the entire scope of the liver. I discussed with the patient that it is possible that she could have a liver contusion or laceration, though it is unlikely that there is any significant injury or blood loss from this as the patient has been stable and without further symptoms in the more than 48 hours since this injury occurred. I have offered the patient a CT scan which she would prefer not to get at this time. 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 We have discussed symptomatic management at home and I have sent a prescription for analgesia to the pharmacy of the patient's choice. We have discussed the importance of taking deep breaths and the usual indications for return. Departure - Departure Disposition: 01 Home, Self Care Clinical Impression: Chest wall contusion Qualifiers: Encounter type: initial encounter Laterality: right Qualified Code(s): S20.211A - Contusion of right front wall of thorax, initial encounter Condition: Stable Instructions: ED Contusion Chest Wall Prescriptions: HYDROcod/ACETAM 5/325 [Gorin 5/325] 1 - 2 tablet PO Q6H PRN #20 tablet PRN Reason: Pain Comments: The x-ray series of your right ribs and chest is negative for any fractures. This has been officially read by the radiologist. As far as the possibility of liver injury, at this point it has been 48 hours since your injury and if there was a significant trauma to the liver, we would have seen major changes in your heart rate and blood pressure by now, as well as your general wellness. We have discussed the possibility of getting a CT scan at this point, he would like to hold off and this is reasonable, given that according to current standard of care for management of liver injuries, the approach is overwhelmingly conservative with a 24h observation only and generally, discharged to heal. Since you are out of the initial 24h window, it is unlikely that discovery of a liver injury would result in a hospital admission at this point. For now, we will focus on pain control so that you can get rest and so that you can work on taking deeper breaths to avoid cuauhtemoc pneumonia. A prescription for your pain medication has been electronically transmitted to the [facility] in [place] at your request.
[2022-11-19 10:57] VITALS: BP 126/81; O2SAT 100
== END 2022-11-18 16:22 | disposition home or self-care (01) ==
LOC: ED 13:50
DX: S20.211A Contusion of right front wall of thorax, initial encounter (principal); W18.2XXA Fall in (into) shower or empty bathtub, initial encounter; F17.200 Nicotine dependence, unspecified, uncomplicated; Z79.899 Other long term (current) drug therapy
CPT/HCPCS: 99283

== ENCOUNTER 2023-06-26 12:26 | Emergency (ER) | payer MEDICAID ==
[2023-06-26 12:41] VITALS: O2SAT 100
[2023-06-26 13:15] LABS: BASOPHILS % (AUTO) 0.7 %; BILIRUBIN,URINE NEGATIVE (NEGATIVE); EOSINOPHILS # (AUTO) 0.2 10^3/uL (0.0-0.7); EOSINOPHILS % (AUTO) 4.2 %; GLUCOSE, URINE (UA) NEGATIVE (NEGATIVE); HCT - HEMATOCRIT 40.3 % (37.0-47.0); HGB - HEMOGLOBIN 12.7 g/dL (12.0-16.0); KETONES,URINE (UA) NEGATIVE (NEGATIVE); LEUKOCYTE ESTERASE, URINE NEGATIVE (NEGATIVE); LYMPHOCYTES # (AUTO) 1.5 10^3/uL (1.5-3.5); LYMPHOCYTES % (AUTO) 27.7 %; MEAN CORPUSCULAR HEMOGLOBIN 28.2 pg (27.0-31.0); MEAN CORPUSCULAR HGB CONC 31.5 g/dL (32.0-36.0); MEAN CORPUSCULAR VOLUME 89.4 fL (81.0-99.0); MEAN PLATELET VOLUME 9.8 fL (7.9-10.8); MONOCYTES # (AUTO) 0.5 10^3/uL (0.0-1.0); NEUTROPHILS # (AUTO) 3.2 10^3/uL (1.5-6.6); NEUTROPHILS % (AUTO) 58.2 %; NITRITE,URINE NEGATIVE (NEGATIVE); OCCULT BLOOD,URINE NEGATIVE (NEGATIVE); PH,URINE 6.5 PH (5.0-7.5); PLT - PLATELET COUNT 247 10^3/uL (130-450); PROTEIN,URINE NEGATIVE (NEGATIVE); RED BLOOD COUNT 4.51 10^6/uL (4.20-5.40); RED CELL DISTRIBUTION WIDTH 12.5 % (12.0-15.0); UROBILINOGEN,URINE 0.2 (NORMAL) E.U./dL (NORMAL); WHITE BLOOD COUNT 5.4 x10^3/uL (4.8-10.8)
[2023-06-26 13:16] LABS: CLARITY,URINE CLEAR (CLEAR)
[2023-06-26 13:19] LABS: HCG UR QUAL NEGATIVE
[2023-06-26 13:32] LABS: ALBUMIN 4.5 g/dL (3.2-5.5); ALBUMIN/GLOBULIN RATIO 1.8 (1.0-2.2); BILIRUBIN,TOTAL 0.3 mg/dL (0.2-1.0); CALCIUM 9.9 mg/dL (8.5-10.3); CREATININE 0.8 mg/dL (0.6-1.3); POTASSIUM 3.9 mmol/L (3.5-4.5)
[2023-06-26] MEDS ORDERED: iohexoL-300 100 ML VIAL ONE (13:37)
--- NOTE | 2023-06-26 14:38 | ED Physician Documentation ---
PD HPI ABD PAIN - Stated complaint Stated Complaint: RT ABD LUMP - Chief complaint Chief Complaint: Abd Pain - History obtained from History obtained from: Patient - History of Present Illness Timing - onset: How many days ago (4) Timing - duration: Days Timing - details: Abrupt onset, Still present Quality: Sharp, Pain Location: RLQ Radiation: Other (right hip), Right flank Improved by: Laying still Worsened by: Moving, Breathing, Position, Palpation Associated symptoms: Nausea. No: Vomiting, Diarrhea, Constipation Similar symptoms before: Has not had sx before Recently seen: Not recently seen - Additional information Additional information: 57-year-old female reports that she was doing chin ups on her chin up bar when she had the sudden onset of right lower quadrant abdominal pain. She states the pain has been persistent it hurts more to move and she can feel a mass under the skin. She has not gotten relief from this pain. Review of Systems Constitutional: denies: Fever Eyes: denies: Decreased vision Ears: denies: Ear pain Nose: denies: Rhinorrhea / runny nose, Congestion Throat: denies: Sore throat Cardiac: denies: Chest pain / pressure Respiratory: denies: Dyspnea GI: reports: Abdominal Pain, Nausea. denies: Vomiting, Constipation, Diarrhea : denies: Dysuria, Frequency PD PAST MEDICAL HISTORY - Past Medical History Past Medical History: Yes Cardiovascular: None Respiratory: None Endocrine/Autoimmune: None Psych: Depression, Anxiety, ADD/ADHD - Past Surgical History Past Surgical History: Yes Ortho: Rotator cuff repair, Arthroscopic surgery, Carpal Tunnel surgery - Present Medications Home Medications: Ambulatory Orders Medication Instructions Recorded Confirmed FLUoxetine [PROzac] 60 mg ORAL DAILY 05/11/15 06/26/23 HYDROcod/ACETAM 5/325 [[place] 5/325] 1 - 2 tablet PO Q6H PRN #20 tablet 11/18/22 06/26/23 Gabapentin [Neurontin] 1 cap PO TID 06/26/23 06/26/23 Multivitamin 1 tab PO DAILY 06/26/23 06/26/23 glucosamine HCL [Glucosamine HCl] 1 tab PO DAILY 06/26/23 06/26/23 - Allergies Allergies/Adverse Reactions: Allergies Allergy/AdvReac Type Severity Reaction Status Date / Time clindamycin Allergy Unknown Verified 06/26/23 12:30 - Social History Does the pt smoke?: Yes Smoking Status: Current every day smoker Does the pt drink ETOH?: No Does the pt have substance abuse?: No - Immunizations Immunizations are current?: Yes - POLST Patient has POLST: No PD ED PE NORMAL - Vitals Vital signs reviewed: Yes (hypertensive ) - General General: Alert and oriented X 3, No acute distress, Well developed/nourished - HEENT HEENT: Atraumatic, PERRL, EOMI - Neck Neck: Supple, no meningeal sign, No bony TTP - Cardiac Cardiac: RRR, No murmur - Respiratory Respiratory: No respiratory distress, Clear bilaterally - Abdomen Abdomen: Normal bowel sounds, Soft, Non distended, No organomegaly, Other (Thin female with pain to palpation to the RLQ without garding or rebound does not have a palpable hernia defect. She does not get relief with compression of the area. There is buldging from under the skin but not a discrete hernia mass. 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, No motor deficit, No sensory deficit, Normal speech Eye Opening: Spontaneous Motor: Obeys Commands Verbal: Oriented GCS Score: 15 - Psych Psych: Normal mood, Normal affect Results - Vitals Vitals: Vital Signs - 24 hr 06/26/23 06/26/23 12:30 14:50 Temperature 36.8 C Heart Rate 70 68 Respiratory 16 14 Rate Blood Pressure 130/90 H 128/80 O2 Saturation 100 100 Oxygen O2 Source Room air - Labs Labs: Laboratory Tests 06/26/23 06/26/23 06/26/23 13:05 13:05 13:05 WBC 5.4 RBC 4.51 Hgb 12.7 Hct 40.3 MCV 89.4 MCH 28.2 MCHC 31.5 L RDW 12.5 Plt Count 247 MPV 9.8 Neut # (Auto) 3.2 Lymph # (Auto) 1.5 [place] # (Auto) 0.5 Eos # (Auto) 0.2 Baso # (Auto) 0.0 Absolute Nucleated RBC 0.00 Nucleated RBC % 0.0 Sodium 137 Potassium 3.9 Chloride 101 Carbon Dioxide 30 Anion Gap 6.0 BUN 17 Creatinine 0.8 Estimated GFR (MDRD) 74 L Glucose 76 Calcium 9.9 Total Bilirubin 0.3 AST 18 ALT 16 Alkaline Phosphatase 83 Total Protein 7.0 Albumin 4.5 Globulin 2.5 Albumin/Globulin Ratio 1.8 Lipase 113 H Urine Color LIGHT YELLOW Urine Clarity CLEAR Urine pH 6.5 Ur Specific [place] <=1.005 Urine Protein NEGATIVE Urine Glucose (UA) NEGATIVE Urine Ketones NEGATIVE Urine Occult Blood NEGATIVE Urine Nitrite NEGATIVE Urine Bilirubin NEGATIVE Urine Urobilinogen 0.2 (NORMAL) Ur Leukocyte Esterase NEGATIVE Ur Microscopic Review NOT INDICATED Urine Culture Comments NOT INDICATED Urine HCG, Qual NEGATIVE - Rads (name of study) CT ab/pel with Relevant Findings:: Prelim report reviewed (Impression: Large amount of fecal debris throughout the colon without evidence of obstruction. The appendix is identified without evidence of acute appendicitis.), EMP independent interpretation of test PD Medical Decision Making - ED course Complexity details: reviewed old records, reviewed results, re-evaluated patient, considered differential, d/w patient Reviewed Lab Results: We reviewed a complete blood count showing a normal white blood cell count normal hemoglobin hematocrit and platelets chemistries were equally benign with normal electrolytes normal kidney and liver function and negative urinalysis negative test. These studies are all normal and do not contribute to a specific diagnosis. They are reassuring for the findings on physical exam and imaging and correlate with these findings. ED course: 57-year-old female with a feeling that she has a hernia after doing chin ups into her home and having severe pain in the right lower quadrant. On examination I am not feeling any hernia sac or defect and I can place my hand over the right lower quadrant and the patient does not get relief. I am able to see bulging from under the skin as the patient is quite thin and this seems to correlate with the amount of stool present in the patient's colon. I suspect the patient has pulled a muscle in her abdomen she does not in any way feel that she is constipated and does not give a history of constipation. She does have a significant stool load on her CT scan I have encouraged her to take some milk of magnesia. I will have the patient follow-up with the surgeon and I have described to her what is expected for the course with an abdominal wall muscle strain. Departure - Departure Disposition: 01 Home, Self Care Clinical Impression: Strain of abdominal wall Qualifiers: Encounter type: initial encounter Qualified Code(s): S39.011A - Strain of muscle, fascia and tendon of abdomen, initial encounter Constipation Qualifiers: Constipation type: unspecified constipation type Qualified Code(s): K59.00 - Constipation, unspecified Condition: Stable Instructions: ED Constipation, ED Strain Abdominal Muscle Follow-Up: Pepper Woodard MD [Primary Care Provider] - Moi Soto MD [Provider Admit Priv/Credential] - Comments: Suzy, today on examination I am not finding an obvious hernia defect. I suspect you have strained your abdominal wall muscle and this will take at least 10 days to get some strength back into it. Because you use your abdominal wall muscles for all of your posturing and movement the full recovery can take months. A follow-up with the surgeon is indicated to reassure that there is not a problem with the hernia. On your imaging today, as we discussed it appears that there is a significant stool burden. I would recommend use of milk of magnesia and expect to have some results within 6 hours. If you do not have results take a second dose. Following that use of MiraLAX for 2 weeks on a regular basis is indicated to retrain your colon. Forms: PCP List Discharge Date/Time: 06/26/23 14:50
--- NOTE | 2023-06-26 14:51 | CT Report ---
PROCEDURE: CT abdomen pelvis without contrast INDICATIONS: RLQ pain/mass TECHNIQUE: Helical axial CT of the abdomen and pelvis was obtained after intravenous contrast adminis tration and reformatted in multiple planes. Radiation dose reduction was achieved using automated exp osure control or adjustment of mA and/or kV according to patient size. COMPARISON: 08/31/2019 FINDINGS: Lower thorax: The lung bases are clear. Heart size normal. No hiatal hernia. Liver: Normal in size and attenuation. No contour deformity present. Biliary system: No calcified cholelithiasis or pericholecystic inflammation. No evidence of bile du ct dilatation. Pancreas: Unremarkable without mass or inflammation evident. Spleen: Normal in size and density. Adrenals: Normal morphology and density. Reproductive system: Unremarkable as visualized. Urinary system: Normal renal size and attenuation. No renal calculi, hydronephrosis, or solid mass p resent. Urinary bladder unremarkable. Gastrointestinal system: Large amount of fecal debris throughout the colon Appendix: Normal-appearing appendix identified Peritoneal spaces: No mesenteric or retroperitoneal adenopathy. No free air. No free fluid. Vasculature: The IVC, aorta and iliac vasculature are unremarkable. Abdominal wall: Abdominal wall is intact without evidence of ventral or inguinal hernias. Musculoskeletal: Normal bone mineralization. No acute fractures. IMPRESSION: Large amount of fecal debris throughout the colon without evidence of obstruction. The appendix is id entified without evidence of acute appendicitis Reviewed by: Geo Grant MD on 06/26/2023 1:49 PM AKDT Approved by: Geo Grant MD on 06/26/2023 1:49 PM AKDT Station ID: [id number]
[2023-06-26 14:53] VITALS: BP 128/80
[2023-06-26] MEDS: iohexoL-300 100 ML VIAL IVP ONE (14:58)
== END 2023-06-26 14:50 | disposition home or self-care (01) ==
LOC: ED 12:26
DX: S39.011A Strain of muscle, fascia and tendon of abdomen, initial encounter (principal); K59.00 Constipation, unspecified; X58.XXXA Exposure to other specified factors, initial encounter; Y93.A9 Activity, other involving cardiorespiratory exercise; F17.200 Nicotine dependence, unspecified, uncomplicated
CPT/HCPCS: 36415; 74177; 80053; 81003; 81025; 83690; 85025; 99283; 99284; Q9967; 81001; 87086